=== PATIENT | male | born 1970 | race Caucasian/White ===

== ENCOUNTER → 2018-11-09 | Emergency (ER) | payer OTHER ==
[~2018-11-09] VITALS: Wt 80.0 kg
[~2018-11-09] MED LIST: CEPH-443 PO; DIPHTH/TET/ACEL PERTUSS (ADULT) 0.5 ML VIAL IM* ONE; IBUP-1542 PO; LIDOCAINE 2%/EPI MPF (SDV) 20 ML VIAL INJ STA
[2018-11-09 14:31] VITALS: BP 128/76; PULSE 63; RESP 18
--- NOTE | 2018-11-09 19:14 | ERD ---
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 HPI This is a 47-year-old very pleasant [id number] male who presents to the ED complaining of a laceration to his right forearm sustained approximately 30 minutes prior to arrival. Patient states he was fixing his dryer and forgot to turn it off when the machine went off as his hand was in the dryer. Patient should sustained a curvilinear laceration to the anterior aspect of his right forearm. He immediately cleaned the wound, applied pressure and came here for further evaluation. He denies any numbness or tingling of his fingers or wrist. He has full range of motion of his fingers and his wrist. He endorses some burning pain around laceration site but otherwise has no other pain. Does not know if his tetanus is up-to-date. ROS All systems reviewed and are negative except as per history of present illness. Medications Home Meds Active Scripts Cephalexin* (Keflex*) 500 Mg Capsule, 500 MG PO QID for 5 Days, CAP Prov:ELODIAIGRJENNIFER SEAY-C 11/09/18 Ibuprofen* (Motrin*) 600 Mg Tab, 600 MG PO Q6H PRN for PAIN AND OR ELEVATED TEMP, #30 TAB Prov:ELODIAIGRIKIANJENNIFER-C 11/09/18 Allergies Allergies: Coded Allergies: No Known Allergy (Unverified , 11/09/18) PMhx/Soc Hx Alcohol Use: No Hx Substance Use: No Hx Tobacco Use: No Smoking Status: Never smoker Physical Exam Vitals Vital Signs Date Temp Pulse Resp B/P (MAP) Pulse Ox O2 O2 Flow FiO2 Time Delivery Rate 11/09/18 98.1 63 18 128/76 98 14:31 (93) Physical Exam Const: No acute distress Head: Atraumatic Eyes: Normal Conjunctiva ENT: Normal External Ears, Nose and Mouth. Neck: Full range of motion. No meningismus. Skin: + Approximately 7 cm curvilinear deep laceration to right mid anterior forearm involving subcutaneous tissue and fat with avulsed skin at the posterior aspect, cap refill less than 2 seconds, full range of motion of the fingers and wrist, radial, ulnar, medial nerves intact, sensation grossly intact. Neur: Awake and alert Psych: Normal Mood and Affect Results 24 hrs Current Medications Medications Dose Sig/Donta Start Time Status Last (Trade) Ordered Route PRN Stop Time Admin Dose Reason Admin Diphtheria/ 0.5 ml ONCE ONCE 11/09/18 DC 11/09/18 Tetanus/Acell IM* 17:30 17:20 Pertussis 11/09/18 17:31 (Adacel) Lidocaine/ 20 ml ONCE STAT 11/09/18 DC Epinephrine INJ 17:10 (Xylocaine 11/09/18 17:12 2%/ Epi Mpf(Sdv)) Procedures/MDM PROCEDURES: Laceration Repair by me: Anesthesia: 1% lidocaine locally Location: Right anterior forearm Tendon/Joint/Nerves: No injury Foreign body: None detected after copious irrigation and exploration Technique: 5-0 vicryl deep dermal sutures x 4, 5-0 ethion superficial sutures x 14 Complexity: subcutaneous sutures w/ edge excision Post Closure Length: 7 cm 48 hour wound check. Scar minimization instructions given. ED COURSE: The patient was given tetanus update The medication was well tolerated and the patient had market improvement in symptoms. The patient remained stable throughout ED course. MEDICAL DECISION MAKING: This is a 47-year-old male who presents with laceration to his right forearm sustained from a drying machine earlier today. Patient's tetanus was updated. Laceration was repaired with both deep dermal and dermal sutures. Surgicel was also applied to help achieve hemostasis. Patient's bleeding was easily controlled in the department. He has no evidence of compartment syndrome, neurologic injury, vascular injury, tendon laceration, or foreign body. Given nature of injury, patient was given a 5-day course of prophylactic antibiotics. He was told to follow-up in 48 hours for wound recheck, and suture removal in 10 days. Pt was evaluated by my supervising physician, Dr. Duarte who agrees w/ my assessment. PRESCRIPTIONS: Keflex, ibuprofen SPECIALIST FOLLOW UP RECOMMENDED: None Patient has been advised to follow up with primary care in 1-2 days. Departure Diagnosis: Primary Impression: Laceration Condition: Stable Patient Instructions: Laceration, All Referrals: COMMUNITY CLINICS YOU HAVE RECEIVED A MEDICAL SCREENING EXAM AND THE RESULTS INDICATE THAT YOU DO NOT HAVE A CONDITION THAT REQUIRES URGENT TREATMENT IN THE EMERGENCY DEPARTMENT. FURTHER EVALUATION AND TREATMENT OF YOUR CONDITION CAN WAIT UNTIL YOU ARE SEEN IN YOUR DOCTORS OFFICE WITHIN THE NEXT 1-2 DAYS. IT IS YOUR RESPONSIBILITY TO MAKE AN APPOINTMENT FOR FOLOW-UP CARE. IF YOU HAVE A PRIMARY DOCTOR --you should call your primary doctor and schedule an appointment IF YOU DO NOT HAVE A PRIMARY DOCTOR YOU CAN CALL OUR PHYSICIAN REFERRAL HOTLINE AT IF YOU CAN NOT AFFORD TO SEE A PHYSICIAN YOU CAN CHOSE FROM THE FOLLOWING [facility] [address] [facility] [address] [facility] [address] [facility] [address] [facility] [address] [facility] [facility] [address] [facility]. [facility] YOU HAVE RECEIVED A MEDICAL SCREENING EXAM AND THE RESULTS INDICATE THAT YOU DO NOT HAVE A CONDITION THAT REQUIRES URGENT TREATMENT IN THE EMERGENCY DEPARTMENT. FURTHER EVALUATION AND TREATMENT OF YOUR CONDITION CAN WAIT UNTIL YOU ARE SEEN IN YOUR DOCTORS OFFICE WITHIN THE NEXT 1-2 DAYS. IT IS YOUR RESPONSIBILITY TO MAKE AN APPOINTMENT FOR FOLOW-UP CARE. IF YOU HAVE A PRIMARY DOCTOR --you should call your primary doctor and schedule and appointment IF YOU DO NOT HAVE A PRIMARY DOCTOR YOU CAN CALL OUR PHYSICIAN REFERRAL HOTLINE AT . IF YOU CAN NOT AFFORD TO SEE A PHYSICIAN YOU CAN CHOSE FROM THE FOLLOWING [facility]: [facility] [address] [place] [address] [facility] [address] [place] [address] [facility] [address] [place] [address] Additional Instructions: Call your primary care doctor TOMORROW for an appointment during the next 2-4 days and bring all the information and medications prescribed. If the symptoms get worse and your provider is unavailable, return to the Emergency Department immediately. JENNIFER BRAUN PA-C Nov 09, 2018 19:10
== END | disposition home or self-care (01) ==
LOC: FTE 14:27
DX: S51.811A Laceration without foreign body of right forearm, initial encounter (principal); W31.9XXA Contact with unspecified machinery, initial encounter; Y92.9 Unspecified place or not applicable; Z23 Encounter for immunization
CPT/HCPCS: 90471; 90715